=== PATIENT | female | born 1995 | race Caucasian/White ===

== ENCOUNTER 2016-07-21 18:52 | Emergency (ER) ==
--- NOTE | 2016-07-21 19:42 | PROVIDER DOCUMENTATION ---
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 Follow up with an ENT for further treatment. ED Follow Up Instructions: You have been treated by a care provider in the Emergency Department. These instructions are being provided to you so you can have an understanding of how to care for yourself upon discharge. Upon discharge from the Emergency Department, you are responsible for making arrangements for follow-up care by a physician of your choice. Take all prescribed medications as directed. Return to the Emergency Department immediately for any new or worsening symptoms. You may call the Physician Referral phone number at [phone] to obtain a list of Physicians who are taking new patients. Prescriptions: Guaifenesin/D-Methorphan Hb/PE [Deconex Dmx Tablet] 1 each PO TID #30 tablet Montelukast Chew [Singulair] 5 mg PO DAILY #30 tablet Referrals: Kristen Travis MD [STAFF PHYSICIAN] - Jorge Luis Chinchilla [Primary Care Provider] - Original Note: HPI-EENT General - General Chief Complaint: Sinus Pain Stated Complaint: SINUS ISSUES Time Seen by Provider: 07/21/16 19:32 Source: patient Allergies/Adverse Reactions: Patient Allergies Allergy/AdvReac Type Severity Reaction Status Date / Time No Known Allergies Allergy Verified 07/21/16 19:35 Home Medications: Dextroamphetamine/Amphetamine [Adderall 20 mg Tablet] 20 mg PO DAILY 07/21/16 Fluoxetine HCl [Prozac] 10 mg PO DAILY 07/21/16 - History of Present Illness-EENT General Nature of Presenting Problem: 20 y/o F with chronic sinus infections for 4 months. Pt has been treated by [address] that are not ENT specialist with 5 rounds of antibiotics. Pt says she is hurting. EENT Location: reports: facial Quality of Pain: reports: aching Severity: reports: moderate Onset/Duration: reports: other (4 months) Timing: reports: still present Prearrival Treatment: Initiated prescription meds, Initiated other Similar Symptoms Previously?: Yes Recently seen or treated by another doctor?: Yes Review of Systems - Adult - REVIEW OF SYSTEMS - ADULT Constitutional: denies: chills, fever Eyes: reports: no symptoms reported Ears, Nose, Mouth & Throat: reports: sinus problem. denies: ear pain, throat pain Cardiovascular: denies: chest pain, edema Respiratory: denies: cough, pleurisy, shortness of breath, wheezing Gastrointestinal: denies: abdominal pain, diarrhea, nausea, vomiting Genitourinary: reports: no symptoms reported Musculoskeletal: reports: no symptoms reported Integumentary: reports: no symptoms reported Neurological: reports: no symptoms reported Psychiatric: reports: no symptoms reported Endocrine: reports: no symptoms reported Hematologic/Lymphatic: reports: no symptoms reported Allergic/Immunologic: reports: no symptoms reported All Other Systems: Reviewed and Negative Past History - Adult - PAST MEDICAL HISTORY-ADULT Review of Records: reports: Old Records Reviewed, Nursing Assessment Review, Medications Reviewed Physical Exam- EENT - Physical Exam EENT Initial Vital Signs Reviewed: Yes General Appearance: alert, anxious, other (tearful) Eye Exam: bilateral eye: normal inspection, PERRL, EOMI Ear Exam: bilateral ear: auricle normal, canal normal, TM normal Nasal Exam: sinus tenderness. negative: normal inspection (redness and swelling in flares), active bleeding Neck: non-tender, full range of motion, supple, normal inspection Respiratory: chest non-tender, lungs clear, normal breath sounds, no pleuratic chest pain, no respiratory distress, no accessory muscle use Cardiovascular: normal peripheral pulses, regular rate, rhythm Abdominal Exam: normal bowel sounds, non tender, soft Back Exam: normal inspection, no CVA tenderness, no vertebral tenderness Extremity: normal range of motion, non-tender, normal gait, normal inspection, no pedal edema Integumentary: normal color, normal turgor, warm/dry Neurologic: grossly normal, no motor/sensory deficits Psych/Mental Status: normal thought content, normal thought process, oriented x 3, anxious Progress - PLAN OF CARE/RESULTS Progress/Plan/Lab Results: Orders Category Date Time Status SINUSES [RAD] Stat Exams 07/21/16 19:32 Taken Vital Signs Temp Pulse Resp BP Pulse Ox 07/21/16 19:30 98.5 F 73 18 132/76 98 No Known Allergies Allergy (Verified 07/21/16 19:35) Dextroamphetamine/Amphetamine [Adderall 20 mg Tablet] 20 mg PO DAILY 07/21/16 Fluoxetine HCl [Prozac] 10 mg PO DAILY 07/21/16 Guaifenesin/D-Methorphan Hb/PE [Deconex Dmx Tablet] 1 each PO TID #30 tablet 03/29 Montelukast Chew [Singulair] 5 mg PO DAILY #30 tablet 07/21/16 - XRAY 1 XRAY Study: Facial Bones Departure - Departure Time of Disposition Order: 19:41 DIAGNOSIS: Chronic sinus infection Qualifiers: Sinusitis location: frontal Qualified Code(s): J32.1 - Chronic frontal sinusitis Disposition: HOME 01 Certified Medical Emergency: Emergent Condition: Stable Additional Instructions: Follow up with ENT [facility] Follow Up Instructions: You have been treated by a care provider in the Emergency Department. These instructions are being provided to you so you can have an understanding of how to care for yourself upon discharge. Upon discharge from the Emergency Department, you are responsible for making arrangements for follow-up care by a physician of your choice. Take all prescribed medications as directed. Return to the Emergency Department immediately for any new or worsening symptoms. You may call the Physician Referral phone number at [phone] to obtain a list of Physicians who are taking new patients. Referrals: Jorge Luis Chinchilla [Primary Care Provider] - Kristen Travis MD [STAFF PHYSICIAN] - Attestation - Scribe Verification/Attestation Scribe:: Chava Kessler Acting as Scribe for:: Armen Carlos Scribe documention review:: This chart was documented by a scribe and accurately reflects the service the provider performed and the decisions made by the provider. - Physician/ Mid-level Attestation Patient care was provided by Mid-level provider ([employer]/PA):: Yes Mid-level provider:: Armen Carlos Mid-level documentation review:: The Mid-level provider documentation, treatment plan and medical decision making was reviewed by the physician who agrees with all treatment and medical decision making by the [facility].
[2016-07-21] MEDS ORDERED: ATIVAN IM ONE (20:01)
[2016-07-21 20:24] VITALS: BP 137/63
--- NOTE | 2016-07-22 06:27 | Diag Imaging Result Document ---
PROCEDURE NAME: SINUSES - 07/21/2016 SINUS SERIES, THREE VIEWS: FINDINGS: No sinus opacification. No air fluid levels. No mucosal thickening. No bony expansion. IMPRESSION: No sinusitis.
== END 2016-07-21 20:28 | disposition home or self-care (01) ==
LOC: P.ED 18:52
DX: J32.1 Chronic frontal sinusitis (principal); F41.0 Panic disorder [episodic paroxysmal anxiety]; J34.89 Other specified disorders of nose and nasal sinuses; Z79.899 Other long term (current) drug therapy
CPT/HCPCS: 70220; 96372; J2060